=== PATIENT | female | born 1990 | race Caucasian/White ===

== ENCOUNTER 2024-04-09 20:01 | Emergency (ER) | payer OTHER ==
[~2024-04-09] VITALS: Ht 162.6 cm; Wt 61.2 kg
[2024-04-09] MEDS ORDERED: IBUPROFEN 600 MG TABLET ONE ×2 (22:22→22:27)
[2024-04-09] MEDS: IBUPROFEN 600 MG TABLET PO ONE (22:28)
[2024-04-09 22:59] VITALS: BP 111/69; TEMP 97.4; O2SAT 100
== END 2024-04-09 23:00 | disposition home or self-care (01) ==
LOC: ER 20:58
DX: R53.1 Weakness (principal); J45.909 Unspecified asthma, uncomplicated; Z59.00 Homelessness unspecified; Z76.5 Malingerer [conscious simulation]; Z88.0 Allergy status to penicillin; Z88.8 Allergy status to other drugs, medicaments and biological substances